=== PATIENT | female | born 1980 | race Two or more races ===

== ENCOUNTER 2022-12-10 03:55 | Emergency (ER) | payer SELFPAY ==
[2022-12-10] MEDS ORDERED: Ondansetron 4 MG Tab.DIS PO ONE (05:05)
[2022-12-10 05:31] LABS: CORONAVIRUS COVID-19 NAA NEGATIVE (NEGATIVE)
== END 2022-12-10 06:46 | disposition home or self-care (01) ==
LOC: JD.ED 03:55
DX: A08.4 Viral intestinal infection, unspecified (principal); I10 Essential (primary) hypertension; Z20.822 Contact with and (suspected) exposure to COVID-19
CPT/HCPCS: 0241U; 99284; A9270; 99283